=== PATIENT | female | born 1970 ===

== ENCOUNTER 2022-04-08 04:11 | Day surgery (SDC) | payer BC, OTHER ==
[2022-04-05 10:50] VITALS: BMI 49.0
[2022-04-08 12:00] VITALS: BP 145/78; PULSE 69; RESP 16; TEMP 97.1
== END 2022-04-08 12:20 | disposition home or self-care (01) ==
LOC: JASU-ENDO 04:11
PROVIDERS: ATTEND Internal Medicine Gastroenterology
PROC: 0DJD8ZZ Inspection of Lower Intestinal Tract, Via Natural or Artificial Opening Endoscopic (ICD-10-PCS; principal; 2022-04-08 09:00)
DX: Z12.11 Encounter for screening for malignant neoplasm of colon (principal); K57.30 Diverticulosis of large intestine without perforation or abscess without bleeding; K64.8 Other hemorrhoids; I10 Essential (primary) hypertension; E11.9 Type 2 diabetes mellitus without complications; E66.01 Morbid (severe) obesity due to excess calories
CPT/HCPCS: 81025; 82962